=== PATIENT | male | born 1990 | race Caucasian/White ===

== ENCOUNTER 2023-03-02 17:01 | Emergency (ER) | payer SELFPAY ==
[~2023-03-02] VITALS: Ht 180 cm; Wt 100.0 kg
[2023-03-02] MEDS ORDERED: LACTATED RINGERS 1,000 ML 1,000 ML IV STA (17:18)
--- NOTE | 2023-03-02 17:25 | ED Psychosocial ---
General Chief Complaint: Substance Abuse Stated Complaint: DETOX Source: patient Exam Limitations: no limitations (NESTOR GARAY MD) History of Present Illness Date Seen by Provider: Mar 02, 2023 Time Seen by Provider: 17:08 Initial Comments Patient brought in by law enforcement with concerns for alcohol intoxication. Patient states that he wants to get off alcohol and apparently the deputy had talked with [facility]. They are unable to do a screening until he is sober. Apparently he had made some vague statements to law enforcement regarding thoughts of harm to self but patient denies current SI or HI concerns. He states that he has been on alcohol for her very long time and just wants to get sober. He arrives with medicine including diazepam that was prescribed to him presumably for the detox needs. 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 Denies nausea or vomiting. Denies injury. Denies any recent illness. Timing/Duration: other (Chronic for many years) Severity: moderate Associated Symptoms: ingestion (Alcohol of up to 1 gallon a day of vodka) (NESTOR GARAY MD) Allergies and Home Medications Allergies Coded Allergies: No Known Drug Allergies (Unverified , 03/02/23) Patient Home Medication List Home Medication List Reviewed: Yes (NESTOR GARAY MD) Review of Systems Constitutional: see HPI; No chills, No fever EENTM: no symptoms reported Respiratory: no symptoms reported Cardiovascular: No chest pain, No palpitations Gastrointestinal: No nausea, No vomiting Genitourinary: no symptoms reported Musculoskeletal: no symptoms reported Psychiatric/Neurological: Depressed (NESTOR GARAY MD) Past Eapzgqr-Sknnyt-Ayafoc Hx Patient Social History Tobacco Use?: No Substance use?: Yes Substance type: Marijuana Substance frequency: Once in a while Alcohol Use?: Yes Alcohol type: Hard Liquor Alcohol Frequency: Daily (NESTOR GARAY MD) Past Medical History Surgeries: Yes Orthopedic Respiratory: No Cardiac: No Neurological: No Genitourinary: No Gastrointestinal: No Musculoskeletal: No Endocrine: No Psychosocial: Yes Depression (NESTOR GARAY MD) Physical Exam Vital Signs - First Documented 03/02/23 17:18 Temp 37.5 Pulse 87 Resp 20 B/P (MAP) 140/83 (102) Pulse Ox 96 O2 Delivery Room Air (ROSELIA ERICKSON MD) Capillary Refill : (NESTOR GARAY MD) Height, Weight, BMI Height: '" Weight: lbs. oz. kg; BMI Method: General Appearance: WD/WN, no apparent distress HEENT: PERRL/EOMI, pharynx normal Neck: full range of motion, supple Respiratory: lungs clear, normal breath sounds Cardiovascular: regular rate, rhythm, no murmur Gastrointestinal: non tender, soft Extremities: non-tender, normal inspection Neurologic/Psychiatric: alert Appearance/Memory: disheveled Behavior/Eye Contact: decreased rate of speech, other (Markedly slurred speech compatible with intoxication) Skin: normal color, warm/dry (NESTOR GARAY MD) Progress/Results/Core Measures Results/Orders Lab Results Laboratory Tests Test 03/02/23 17:15 03/02/23 17:26 Range/Units White Blood Count 10.1 4.3-11.0 10^3/uL Red Blood Count 4.73 4.30-5.52 10^6/uL Hemoglobin 16.4 13.3-17.7 g/dL Hematocrit 48 40-54 % Mean Corpuscular Volume 100 H 80-99 fL Mean Corpuscular Hemoglobin 35 H 25-34 pg Mean Corpuscular Hemoglobin Concent 35 32-36 g/dL Red Cell Distribution Width 13.8 10.0-14.5 % Platelet Count 335 130-400 10^3/uL Mean Platelet Volume 9.4 9.0-12.2 fL Immature Granulocyte % (Auto) 0 % Neutrophils (%) (Auto) 55 42-75 % Lymphocytes (%) (Auto) 31 12-44 % Monocytes (%) (Auto) 11 0-12 % Eosinophils (%) (Auto) 2 0-10 % Basophils (%) (Auto) 2 0-10 % Neutrophils # (Auto) 5.5 1.8-7.8 10^3/uL Lymphocytes # (Auto) 3.1 1.0-4.0 10^3/uL Monocytes # (Auto) 1.1 H 0.0-1.0 10^3/uL Eosinophils # (Auto) 0.2 0.0-0.3 10^3/uL Basophils # (Auto) 0.2 H 0.0-0.1 10^3/uL Immature Granulocyte # (Auto) 0.0 0.0-0.1 10^3/uL Sodium Level 138 135-145 MMOL/L Potassium Level 4.4 3.6-5.0 MMOL/L Chloride Level 102 98-107 MMOL/L Carbon Dioxide Level 24 21-32 MMOL/L Anion Gap 12 5-14 MMOL/L Blood Urea Nitrogen 10 7-18 MG/DL Creatinine 0.77 0.60-1.30 MG/DL Estimat Glomerular Filtration Rate 120 BUN/Creatinine Ratio 13 Glucose Level 97 70-105 MG/DL Calcium Level 8.8 8.5-10.1 MG/DL Corrected Calcium 8.6 8.5-10.1 MG/DL Total Bilirubin 0.2 0.1-1.0 MG/DL Aspartate Amino Transf (AST/SGOT) 120 H 5-34 U/L Alanine Aminotransferase (ALT/SGPT) 103 H 0-55 U/L Alkaline Phosphatase 65 40-136 U/L Total Protein 7.5 6.4-8.2 GM/DL Albumin 4.3 3.2-4.5 GM/DL Salicylates Level < 5.0 L 5.0-20.0 MG/DL Acetaminophen Level < 10 L 10-30 UG/ML Serum Alcohol 301 *H <10 MG/DL Urine Color YELLOW Urine Clarity CLEAR Urine pH 7.0 5-9 Urine Specific [place] 1.025 H 1.016-1.022 Urine Protein NEGATIVE NEGATIVE Urine Glucose (UA) NEGATIVE NEGATIVE Urine Ketones NEGATIVE NEGATIVE Urine Nitrite NEGATIVE NEGATIVE Urine Bilirubin NEGATIVE NEGATIVE Urine Urobilinogen 0.2 < = 1.0 MG/DL Urine Leukocyte Esterase NEGATIVE NEGATIVE Urine RBC (Auto) NEGATIVE NEGATIVE Urine RBC NONE /HPF Urine WBC NONE /HPF Urine Squamous Epithelial Cells NONE /HPF Urine Crystals NONE /LPF Urine Bacteria TRACE /HPF Urine Casts NONE /LPF Urine Mucus NEGATIVE /LPF Urine Culture Indicated NO Urine Opiates Screen NEGATIVE NEGATIVE Urine Oxycodone Screen NEGATIVE NEGATIVE Urine Methadone Screen NEGATIVE NEGATIVE Urine Barbiturates Screen NEGATIVE NEGATIVE Ur Tricyclic Antidepressants Screen NEGATIVE NEGATIVE Urine Phencyclidine Screen NEGATIVE NEGATIVE Urine Amphetamines Screen NEGATIVE NEGATIVE Urine Methamphetamines Screen NEGATIVE NEGATIVE Urine Benzodiazepines Screen POSITIVE H NEGATIVE Urine Cocaine Screen NEGATIVE NEGATIVE Urine Cannabinoids Screen POSITIVE H NEGATIVE (ROSELIA ERICKSON MD) My Orders Orders - ROSELIA ERICKSON MD Lactated Ringers 1,000 Ml (Lactated Ring (03/02/23 19:00) Thiamine Tablet (Vitamin B-1 Tablet) (03/02/23 19:00) Folic Acid Tablet (Folic Acid Tablet) (03/02/23 19:09) Folic Acid Tablet (Folic Acid Tablet) (03/02/23 19:15) (ROSELIA ERICKSON MD) Medications Given in ED Current Medications Medications Dose Ordered Sig/Rajiv Route Start Time Stop Time Status Last Admin Dose Admin Folic Acid 1 mg ONCE ONCE PO 03/02/23 19:15 03/02/23 19:16 DC 03/02/23 19:11 1 MG Thiamine HCl 100 mg ONCE ONCE PO 03/02/23 19:00 03/02/23 19:01 DC 03/02/23 19:11 100 MG (ROSELIA ERICKSON MD) Vital Signs/I&O 03/02/23 17:18 Temp 37.5 Pulse 87 Resp 20 B/P (MAP) 140/83 (102) Pulse Ox 96 O2 Delivery Room Air (ROSELIA ERICKSON MD) Progress Progress Note : Progress Note Seen and evaluated. We have initiated substance abuse workup including IV, CBC, CMP, UA, UDS, Tylenol, salicylate and alcohol levels, UDS and UA as well as EKG. We will initiate 1 L of LR bolus. Patient seems cooperative at this point and irritable and denies SI or HI. We will have to metabolize until sober enough for mental health evaluation and rescreen for detox consideration versus mental health considerations. Monitor patient. Differential diagnosis includes alcohol intoxication, alcohol abuse, substance abuse, electrolyte abnormality, dehydration 1743: CBC reviewed and grossly normal. 1757: CMP reviewed and AST and ALT are mildly elevated consistent with alcohol abuse. Urine drug screen notes benzodiazepines and cannabinoids which were expected. Alcohol is right at 300 and Tylenol and salicylate are negative. UA is negative. We will have to monitor and tell more sober so screening can be accomplished. Care transferred to Dr. Erickson pending metabolizing to sobriety so screening can be accomplished. (NESTOR GARAY MD) Progress Note : Time: 20:59 Progress Note Patient care assumed at shift change from outgoing provider, pending fluid completion, improving sobriety. I assessed the patient at this time who is alert, oriented. I have reviewed his labs as documented by the prior provider. His vital signs are stable, he has no physical complaints. He is wanting assistance with medical detox so that he can pursue sobriety. Patient states that he is never had an episode of sobriety. He has never had a seizure related to drinking as he has never quit drinking. He states a provider at [facility] told him secondary to his heavy alcohol use and daily Valium use that he would be at risk for severe withdrawal should he be in a detox setting that was not medically oriented. The patient is adamant that he has no thoughts of self-harm, suicidal ideation, homicidal ideation, auditory hallucinations or visual hallucinations. He states he wants to get well as he has children to consider. He does endorse some recent stressors such as losing his job and a vehicle that he was supposed to buy. I have advised him that we have no inp atient detox capabilities at our facility. He would need to have an intake at [facility] completely sober. They do not do their intakes at night. There is no local medical detox facility. Daily Valium does confound his admission for alcohol detox. I do not think that he meets criteria for inpatient medical admission on its own at this time. My plan would be to give him a prescription for chlordiazepoxide and discharge him to a sober [facility]. I will attempt to call [facility] and see what their availability will be over the next few days. [id number] I spoke with one of the staff at [facility] and they recommended him following up at [facility]" at the [address] [place] [address] here in [place] on for an assessment. They can then provide him with information regarding getting into Detox through [facility]. I have no concerns at this time for the patient needing an 'emergent' mental health evaluation. This information will be provided to him. (ROSELIA ERICKSON MD) Initial ECG Impression Date: Mar 02, 2023 Initial ECG Impression Time: 17:13 Initial ECG Rate: 91 Comment Sinus rhythm with trigeminy noted with PVC every third beat. Normal axis. Left atrial abnormality with enlargement noted. No evidence of ST elevation AR. Interpreted by me. (NESTOR GARAY MD) Departure Impression Primary Impression: Alcohol abuse Additional Impression: Acute alcoholic intoxication Qualified Codes: F10.920 - Alcohol use, unspecified with intoxication, uncomplicated Disposition: 01 HOME, SELF-CARE Condition: Stable Departure-Patient Inst. Decision time for Depature: 21:54 (ROSELIA ERICKSON MD) Patient Instructions: ALCOHOL AND SUBSTANCE ABUSE Add. Discharge Instructions: [facility] ([place], [place]) [address] [place] [address] You can go to "[facility]" at the [address] [place] [address] for rhianna intake to be screened for inpatient detox. [facility] [phone] Clinic Hours: Wednesday 9:00 a.m. 2:00 p.m. Clinic Location: [address] [place] [id number] What is it? [facility] offers readily available mental health intakes, screenings, and referrals for new patients. No appointment needed. Walk-ins are welcome! What to bring: Insurance Card (if applicable), State ID Card or Drivers License, Medication Lists, Relevant Past Medical Records, Proof of income (if applying for financial assistance), Last filed income tax (if applying for financial assistance), Proof of Residency (only for Substance Use evaluations). What to expect upon arrival: Check-in at law office receptionist and complete paperwork, Meet with a Patient Navigator, Meet with a Clinician as available. Once the intake assessment is complete, you may be referred for the appropriate services. The SDA process can take up to two hours, or more, depending on your needs. Helpful tips: Arrive prior to 2:00 p.m. to be seen that day for an intake assessment. It is common for the process to take several hours. Due to other scheduled services, you may not be called back in the order that you arrive. You may bring a member of your support system with you to the intake. Minors must be accompanied by a legal guardian. Only one adult and/or child will be seen for an intake at a time. [facility] services are available if needed. We accept most insurance and offer a sliding fee scale for individuals with limited financial resources. Benefits of [facility]: No appointment needed, No rescheduling of initial appointment due to unforeseen conflicts, Quick access to mental health services, Referrals to other [facility] services. Take your Valium as prescribed. Do not have any alcohol prior to this appointment. Return to the Emergency Department for any new, emergent or concerning symptoms. NESTOR GARAY MD Mar 02, 2023 17:25 ROSELIA ERICKSON MD Mar 02, 2023 21:00
[2023-03-02 17:30] LABS: BASOPHILS # (AUTO) 0.2 10^3/uL (0.0-0.1); BASOPHILS % (AUTO) 2 % (0-10); EOSINOPHILS # (AUTO) 0.2 10^3/uL (0.0-0.3); EOSINOPHILS % (AUTO) 2 % (0-10); HEMATOCRIT 48 % (40-54); HEMOGLOBIN 16.4 g/dL (13.3-17.7); LYMPHOCYTES # (AUTO) 3.1 10^3/uL (1.0-4.0); LYMPHOCYTES % (AUTO) 31 % (12-44); MEAN CORPUSCULAR HEMOGLOBIN 35 pg (25-34); MEAN CORPUSCULAR HGB CONC 35 g/dL (32-36); MEAN CORPUSCULAR VOLUME 100 fL (80-99); MEAN PLATELET VOLUME 9.4 fL (9.0-12.2); MONOCYTES # (AUTO) 1.1 10^3/uL (0.0-1.0); MONOCYTES % (AUTO) 11 % (0-12); NEUTROPHILS # (AUTO) 5.5 10^3/uL (1.8-7.8); NEUTROPHILS % (AUTO) 55 % (42-75); PLATELET COUNT 335 10^3/uL (130-400); WHITE BLOOD COUNT 10.1 10^3/uL (4.3-11.0)
[2023-03-02 17:34] LABS: ALBUMIN 4.3 GM/DL (3.2-4.5); CHLORIDE 102 MMOL/L (98-107); POTASSIUM 4.4 MMOL/L (3.6-5.0); SODIUM 138 MMOL/L (135-145)
[2023-03-02 17:35] LABS: CALCIUM 8.8 MG/DL (8.5-10.1)
[2023-03-02 17:37] LABS: GLUCOSE 97 MG/DL (70-105); TOTAL PROTEIN 7.5 GM/DL (6.4-8.2)
[2023-03-02 17:38] LABS: BILIRUBIN,TOTAL 0.2 MG/DL (0.1-1.0); CARBON DIOXIDE 24 MMOL/L (21-32)
[2023-03-02 17:40] LABS: CREATININE SERUM 0.77 MG/DL (0.60-1.30); GFR ESTIMATED 120
[2023-03-02 17:41] LABS: ALKALINE PHOSPHATASE 65 U/L (40-136)
[2023-03-02 17:42] LABS: BUN/CREATININE RATIO 13
[2023-03-02 17:43] LABS: BACTERIA,URINE TRACE /HPF; BILIRUBIN,URINE NEGATIVE (NEGATIVE); CLARITY,URINE CLEAR; COLOR,URINE YELLOW; GLUCOSE, URINE (UA) NEGATIVE (NEGATIVE); KETONES,URINE NEGATIVE (NEGATIVE); LEUKOCYTE ESTERASE ,URINE NEGATIVE (NEGATIVE); NITRITE,URINE NEGATIVE (NEGATIVE); PROTEIN,URINE NEGATIVE (NEGATIVE)
[2023-03-02 17:43] LABS: SALICYLATE < 5.0 MG/DL (5.0-20.0)
[2023-03-02 17:44] LABS: ALANINE AMINOTRANSFERASE 103 U/L (0-55)
[2023-03-02 17:46] LABS: AMPHETAMINE SCREEN, URINE NEGATIVE (NEGATIVE); BARBITURATE SCREEN URINE NEGATIVE (NEGATIVE); CANNABINOID SCREEN, URINE POSITIVE (NEGATIVE); COCAINE SCREEN URINE NEGATIVE (NEGATIVE); METHADONE STAT NEGATIVE (NEGATIVE); OPIATE SCREEN URINE NEGATIVE (NEGATIVE); OXYCODONE STAT NEGATIVE (NEGATIVE); TRICYCLIC ANTIDEPRESSANTS SCRE NEGATIVE (NEGATIVE)
[2023-03-02 17:47] LABS: ACETAMINOPHEN < 10 UG/ML (10-30)
[2023-03-02] MEDS ORDERED: LACTATED RINGERS 1,000 ML 1,000 ML IV SCH (19:00)
[2023-03-02] MEDS ORDERED: THIAMINE 100 MG (VITAMIN B-1) TAB PO ONE (19:00)
[2023-03-02] MEDS ORDERED: FOLIC ACID 1 MG TAB ONE (19:09)
[2023-03-02] MEDS ORDERED: FOLIC ACID 1 MG TAB PO ONE (19:15)
[2023-03-02 22:05] VITALS: BP 131/80
[2023-03-03] MEDS ORDERED: FOLIC ACID 1 MG TAB PO SCH (09:00)
== END 2023-03-02 22:09 | disposition home or self-care (01) ==
LOC: ER 17:06
DX: F10.129 Alcohol abuse with intoxication, unspecified (principal)
CPT/HCPCS: 80053; 80306; 81000; 85025; 93005; 93041; 99284; G0480 ×3; 36415; 80320; 80329